=== PATIENT | female | born 1955 | race African-American/Black ===

== ENCOUNTER 2018-04-04 17:31 | Emergency (ER) | payer OTHER | END 2018-04-04 18:17 | disposition home or self-care (01) | LOC: NAV ERS 17:31 | DX: M79.645 Pain in left finger(s) (principal); E11.9 Type 2 diabetes mellitus without complications; E03.9 Hypothyroidism, unspecified; I10 Essential (primary) hypertension; F17.210 Nicotine dependence, cigarettes, uncomplicated; Z79.899 Other long term (current) drug therapy; Z79.82 Long term (current) use of aspirin | CPT/HCPCS: 99283 ==